=== PATIENT | male | born 1965 | race Caucasian/White ===

== ENCOUNTER 2019-07-26 15:25 | Emergency (ER) | payer OTHER ==
[~2019-07-26] VITALS: Ht 172.7 cm; Wt 81.6 kg
[2019-07-26 15:46] VITALS: BP 150/113
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
[2019-07-26] MEDS ORDERED: DICL50TA4 PO (17:11)
[2019-07-26] MEDS ORDERED: ORPH-16 PO (17:11)
[2019-07-26] MEDS ORDERED: HYDR-2763 PO (17:11)
== END 2019-07-26 17:39 | disposition home or self-care (01) ==
LOC: ER 15:25
DX: S52.502A Unspecified fracture of the lower end of left radius, initial encounter for closed fracture (principal); S90.32XA Contusion of left foot, initial encounter; R07.2 Precordial pain; I10 Essential (primary) hypertension; Z88.0 Allergy status to penicillin; V23.4XXA Motorcycle driver injured in collision with car, pick-up truck or van in traffic accident, initial encounter; Y93.55 Activity, bike riding; Y92.89 Other specified places as the place of occurrence of the external cause; Y99.8 Other external cause status
CPT/HCPCS: 29125; 71046; 71120; 73110; 73630; 73650; 99284